=== PATIENT | female | born 1985 | race Caucasian/White ===

== ENCOUNTER 2019-12-01 08:05 | Day surgery (SDC) | payer OTHER ==
[~2019-12-01] VITALS: Ht 157.5 cm; Wt 59.0 kg
--- NOTE | ~2019-12-01 | O ---
[facility] [place] [address] OPERATIVE REPORT Name: DERICK SILVERMAN Room #: 150-4 [facility]..#: [id number] Admission: 12/01/19 Attend Phys: Bartolo Burgess MD Discharge: Date of : 81 Report #: [id number] THIS REPORT FOR: cc: MARIANO - Family physician unknown MARIANO - Family physician unknown Bartolo Burgess MD ~ CC: MARIANO unknown Bartolo Burgess DATE OF SERVICE: 12/01/2019 PREOPERATIVE DIAGNOSIS: Left ankle trimalleolar fracture. POSTOPERATIVE DIAGNOSIS: Left ankle trimalleolar fracture. PROCEDURE: Left ankle open reduction and internal fixation. SURGEON: Dr. Bartolo Burgses. UTILIZATION MANAGEMENT UM NURSE: Asia Chin. ANESTHESIA: General. ESTIMATED BLOOD LOSS: Minimal. DRAINS: No drains. TOURNIQUET TIME: 45 minutes. DESCRIPTION OF PROCEDURE: The patient brought to the operating room where she was placed under general anesthesia. Once under adequate general anesthesia, her left lower extremity was prepped and draped in sterile manner. The extremity was elevated, exsanguinated, tourniquet placed 300 mmHg. A medial incision over the medial malleolus was then made. This was dissected down through the soft tissue to the fracture site, any hematoma was evacuated from the fracture site. The patient did have a posterior split as well, which required reduction. The medial malleolar fracture site was then reduced utilizing a bone reduction tenaculum and fixed in place with a single 4.0 cannulated screw. The posterior fragment was then reduced as well with a bone reduction tenaculum verified under fluoroscopy and fixed with a pair of 4.0 cannulated screws placed under fluoroscopic guidance. Excellent fixation and alignment was achieved in this manner as verified under fluoroscopy. Utilizing fluoroscopy for guidance, a guidewire for the intramedullary nail for the fibula was then placed and the entrance reamer was then utilized. The guidewire for the intramedullary nail was placed down the shaft of the fibula and subsequently the reamer was placed. The 3 mm nail was then placed down the shaft of the [facility] [address] [place] [address] OPERATIVE REPORT Name: DERICK SILVERMAN Room #: 150-4 [facility] M.R.#: [id number] Admission: 12/01/19 Attend Phys: Bartolo Burgess MD Discharge: Date of : 81 Report #: [id number] fibula under fluoroscopic guidance. Prior to placing the nail, a reduction of the fracture site was achieved through a separate 2 cm incision over the fracture site with a bone reduction tenaculum. Fixation proximally was then achieved by engaging the tines to expand proximally. Distally through the guide 2, transverse locking screws were placed through the proximal nail. Excellent fixation and alignment was achieved as verified under fluoroscopy. The wounds were irrigated copiously and closed with 2-0 Vicryl in subcutaneous tissues and kim were used for the skin. The wounds were dressed with Xeroform, 4 x 4s, and sterile soft compressive dressing was placed along with a short leg cast. Tourniquet was let down at 1 hour. Toes were pink and warm with good capillary refill. There were no complications from the procedure. The patient tolerated the procedure well and went to the recovery room without incident. By: [id number] Bartolo Burgess MD /nt
[~2019-12-01 08:05] MED LIST: CALCIUM + D3 E1 EACH PO; MULTI VITAMIN1 EACH PO; NORCO 5-325 TA1 EAC1 PO; ONDANSETRON HCL4 M3 PO; TOPROL XL25 MG PO
[2019-12-01 09:22] VITALS: BP 127/70
[2019-12-01] MEDS ORDERED: PERCOCET 7.5-31 EAC1 PO (11:30)
[2019-12-01] MEDS ORDERED: ASPIRIN EC325 M1 PO (11:31)
[2019-12-01 11:49] VITALS: BP 127/70
--- NOTE | 2019-12-01 14:08 | EKG ---
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
== END 2019-12-01 12:40 | disposition home or self-care (01) ==
LOC: OR 08:05 → TBA 08:06 → OR 10:03
DX: S82.852A Displaced trimalleolar fracture of left lower leg, initial encounter for closed fracture (principal); Z98.890 Other specified postprocedural states; Z79.82 Long term (current) use of aspirin; Z79.899 Other long term (current) drug therapy; X58.XXXA Exposure to other specified factors, initial encounter; Y93.89 Activity, other specified; Y92.89 Other specified places as the place of occurrence of the external cause; Y99.8 Other external cause status
CPT/HCPCS: 50010; 50101; 50386; 51412; 56524; 56525; 57091; 57180; 5727; 57806; 57808; 57809; 57885; 57886; 57887; 57889; 57890; 62110; 62900; 70005